=== PATIENT | female | born 1940 | race Caucasian/White ===

== ENCOUNTER 2016-07-29 17:03 | Emergency (ER) | payer MEDICARE, OTHER ==
[~2016-07-29] VITALS: Ht 160 cm; Wt 90.7 kg
[~2016-07-29 17:03] MED LIST: ALLOPURINOL300 MG PO; DYAZIDE 37.5-21 EACH PO; MICARDIS80 MG PO; NORVASC5 MG PO; PRAVACHOL40 M1 PO; TOPROL XL50 MG PO; VOLTAREN25 MG PO
== END 2016-07-29 17:55 | disposition short-term general hospital (02) ==
LOC: ER 17:03
PROC: 0HQ0XZZ Repair Scalp Skin, External Approach (ICD-10-PCS; principal; 2016-07-29)
DX: S01.01XA Laceration without foreign body of scalp, initial encounter (principal); I10 Essential (primary) hypertension; M19.90 Unspecified osteoarthritis, unspecified site; W01.10XA Fall on same level from slipping, tripping and stumbling with subsequent striking against unspecified object, initial encounter; Y93.89 Activity, other specified; Y92.89 Other specified places as the place of occurrence of the external cause; Z23 Encounter for immunization